=== PATIENT | male | born 2000 | race Caucasian/White ===

== ENCOUNTER 2025-09-10 16:52 | Emergency (ER) | payer BC ==
--- OUTSIDE RECORDS SUMMARY | 2025-09-10 16:56 | XMS REPORT | Continuity of Care Document ---
Author Name Unknown Address [address] [facility] [place] [address] [facility] Address [address] [facility] [address] [place] [address] Care Team Providers Care On Site Nurse Name Role Phone NO PHYSICIAN, . Primary Care Physician Unavailab gi Patel MD, Sendil K.H. Attending Clinician [phone] ASHLEY VARGAS Attending Clinician Unava ilable BEO736 Attending Clinician Unavailable TEJ MCFARLANE Attending Clinician Unavailable LAB90 Attending Clinician Unavailable LADAN RODRIGUEZ Attending Clinician Unavailable ASHU BONILLA Attending Clinician ALYSIA Cheema Attending Clinician ESTELA Tellez Attending Clinician Unavailsalvador silva Radiology Attending Clinician Unavailable Payers Payer Name Policy Type Policy Number Effective Date Expirati on Date Source BCBS 2 [id number] 2024 00:00:00 Problems Condition Name Condition Details Condition Category Status Onset Date Resolution Date Last Treatment Date Treating Clinician Comments Source Anxiety Anxiety Disease Active 2023-11 00:00: 00 Colleen Ahn - Externa l Allergies, Adverse Reactions, Alerts Allergy Name Allergy Type Status Severity Reaction(s) Onset Date Inactive Date Treating Clinician Comments Source NO KNOWN ALLERGIE S Drug Class Active [facility] Social History Social Habit Start Date Stop Date Quantity Comments Source Gender identity 2024-08-29 14:37:51 Identifies as male gender (finding) Colleen Ahn - External Sexual orientation K swetha Ahn - External Alcoholic beverage intake 2025-09-05 00:00:00 2025-09-05 00:00:00 Current drinker of alcohol (finding) Colleen Ahn - External History of Social function 2025-09-05 00:00:00 2025-09-05 00:00:00 Colleen Ahn - External Tobacco use and exposure 2024-08-19 00:00:00 2024-08-19 00:00:00 Smokeless tobacco non-user Colleen Ahn - External Alcohol Comment 2024-08-19 00:00:00 2024-08-19 00:00:00 occassionaly Colleen Ahn - External Sex 2024-08-09 10:55:16 2024-08-09 10:55:16 Male (finding) Colleen Ahn - External Tobacco Comment 2024-08-05 00:00:00 2024-08-05 00:00:00 [facility] Sex assigned at 2000 00:00:00 2000 00:00:00 M Colleen Ahn - External Smoking Status Start Date Stop Date Source Unknown if ever smoked [facility] Never smoked tobacco Colleen Ahn - External Medications Ordered Medication Name Filled Medication Name Start Date Stop Date Current Medication? Ordering Clinician Indication Dosage Frequency Signature (SIG) Comments Components Source Propranolol HCl 10 MG oral Tablet Propranolol HCl 10 MG oral Tablet 2024-11 00:00: 00 Yes [id number] 10mg Q.08317545 [id number] 3D Take 1 tablet (10 mg total) by mouth 3 times daily as needed. Colleen more Escitalopra m Oxalate (Lexapro) 10 MG oral Tablet Escitalopra m Oxalate (Lexapro) 10 MG oral Tablet 2023-11 00:00: 00 Yes [id number] 10mg QD Take 1 tablet (10 mg total) by mouth daily. Colleen more Escitalopra m Oxalate (Lexapro) 10 MG oral Tablet 2023-11 00:00: 00 10-21 00:00 :00 No [id number] 10mg QD Take 1 tablet (10 mg total) by mouth daily. Colleen more Propranolol HCl 10 MG oral Tablet Propranolol HCl 10 MG oral Tablet 2023-11 00:00: 00 09-05 00:00 :00 No [id number] 10mg Q.98081428 [id number] 3D Take 1 tablet (10 mg total) by mouth 3 times daily as needed. Colleen more Escitalopra m Oxalate (Lexapro) 10 MG oral Tablet 2023-11 00:00: 00 10-13 00:00 :00 No [id number] 10mg QD Take 1 tablet (10 mg total) by mouth daily. Colleen more Escitalopra m Oxalate (Lexapro) 5 MG oral Tablet 08-19 00:00: 00 09-16 00:00 :00 No [id number] 5mg QD Take 1 tablet (5 mg total) by mouth daily. Colleen more Vital Signs Vital Name Observation Time Observation Value Comments S prisca Diastolic blood pressure 2025-09-05 11:01:00 72 mm[Hg] Colleen camara - External Systolic blood pressure 2025-09-05 11:01:00 134 mm[Hg] Colleen camara - External Heart rate 2025-09-05 10:57:00 96 /min Kelse y Seybold - External Body temperature 2025-09-05 10:57:00 36 Gilda Colleen Seybold - External Respiratory rate 2025-09-05 10:57:00 15 /min Colleen Seybold - External Body height 2025-09-05 10:57:00 182.9 cm Tonja ey Seybold - External Body weight 2025-09-05 10:57:00 99.338 kg Tonja ey Seybold - External BMI 2025-09-05 10:57:00 29.70 kg/m2 Tonja ey Seybold - External Oxygen saturation in Arterial blood by Pulse oximetry 2025-09-05 10:57:00 99 /min Colleen Seybo ld - External Systolic blood pressure 2025-06-05 13:06:00 140 mm[Hg] Colleen Seybo ld - External Diastolic blood pressure 2025-06-05 13:06:00 76 mm[Hg] Colleen Seybo ld - External Heart rate 2025-06-05 13:06:00 78 /min Danose y Seybold - External Body temperature 2025-06-05 13:06:00 35.94 Gilda Colleen Seybold - External Respiratory rate 2025-06-05 13:06:00 15 /min Colleen Seybold - External Body height 2025-06-05 13:06:00 182.9 cm Tonja ey Seybold - External Body weight 2025-06-05 13:06:00 100.699 kg Tonja ey Seybold - External BMI 2025-06-05 13:06:00 30.11 kg/m2 Tonja ey Seybold - External Oxygen saturation in Arterial blood by Pulse oximetry 2025-06-05 13:06:00 98 /min Colleen Seybo ld - External Systolic blood pressure 2024-10-21 16:57:00 120 mm[Hg] Colleen Seybo ld - External Diastolic blood pressure 2024-10-21 16:57:00 78 mm[Hg] Colleen Seybo ld - External Heart rate 2024-10-21 16:57:00 78 /min Kelse y Seybold - External Body temperature 2024-10-21 16:57:00 35.94 Gilda Colleen Seybold - External Respiratory rate 2024-10-21 16:57:00 15 /min Colleen Seybold - External Body height 2024-10-21 16:57:00 182.9 cm Tonja ey Seybold - External Body weight 2024-10-21 16:57:00 95.709 kg Tonja ey Seybold - External BMI 2024-10-21 16:57:00 28.62 kg/m2 Tonja ey Seybold - External Systolic blood pressure 2024-09-16 19:35:00 130 mm[Hg] Colleen Seybo ld - External Diastolic blood pressure 2024-09-16 19:35:00 90 mm[Hg] Colleen Seybo ld - External Heart rate 2024-09-16 19:35:00 92 /min Kelse y Seybold - External Body temperature 2024-09-16 19:35:00 36.61 Gilda Colleen Seybold - External Respiratory rate 2024-09-16 19:35:00 18 /min Colleen Seybold - External Body height 2024-09-16 19:35:00 182.9 cm Tonja ey Seybold - External Body weight 2024-09-16 19:35:00 90.719 kg Tonja ey Seybold - External BMI 2024-09-16 19:35:00 27.12 kg/m2 Tonja ey Seybold - External Oxygen saturation in Arterial blood by Pulse oximetry 2024-09-16 19:35:00 99 /min Colleen Seybo ld - External Systolic blood pressure 2024-08-19 19:28:00 130 mm[Hg] Colleen Seybo ld - External Diastolic blood pressure 2024-08-19 19:28:00 72 mm[Hg] Colleen Seybo ld - External Heart rate 2024-08-19 19:28:00 101 /min Kelse y Seybold - External Body temperature 2024-08-19 19:28:00 36.94 Gilda Colleen Seybold - External Respiratory rate 2024-08-19 19:28:00 18 /min Colleen Seybold - External Body height 2024-08-19 19:28:00 182.9 cm Tonja ey Seybold - External Body weight 2024-08-19 19:28:00 96.616 kg Tonja Mojicaold - External BMI 2024-08-19 19:28:00 28.89 kg/m2 Tonja Ahn - External Oxygen saturation in Arterial blood by Pulse oximetry 2024-08-19 19:28:00 99 /min Colleen Varelaabdiaziz ld - External Systolic blood pressure 2024-08-05 14:20:00 121 mm[Hg] [facility] Diastolic blood pressure 2024-08-05 14:20:00 83 mm[Hg] [facility] Heart rate 2024-08-05 14:20:00 75 /min [facility] Respiratory rate 2024-08-05 14:20:00 16 /min [facility] Body height 2024-08-05 14:20:00 182.9 cm [facility] Body weight 2024-08-05 14:20:00 93.123 kg [facility] BMI 2024-08-05 14:20:00 27.84 kg/m2 [facility] Oxygen saturation in Arterial blood by Pulse oximetry 2024-08-05 14:20:00 100 /min [facility] Height 2024-08-01 10:12:00 182.427171 cm [facility] Weight 2024-08-01 10:12:00 92.899212 kg [facility] BMI (Body Mass Index) 2024-08-01 10:12:00 27.8 kg/m2 [facility] Procedures Procedure Date / Time Performed Performing Clinician Source CBC WITH DIFFERENTIAL 2025-09-06 00:00:00 Colleen Ahn - External COMP. METABOLIC PANEL (14) 2025-09-06 00:00:00 Colleen Ahn - External MAGNESIUM 2025-09-05 00:00:00 Colleen chahal - External TSH RFX ON ABNORMAL TO FREE T4 2025-09-05 00:00:00 Colleen Ahn - External TRANSTHORACIC ECHO (TTE) COMPLETE 2024-08-15 20:32:12 Alysia Patel [facility] XR WRIST 3+ VW RIGHT 2019-07-08 21:12:36 Radiology [facility] ECG- ADULT Colleen Ahn - External Plan of Care Planned Activity Planned Date Details Comments Source Encounters Start Date/Time End Date/Time Encounter Type Admission Type Attending [facility] Care Facility Care Department Encounter ID Source 2025-09-07 00:00:00 2025-09-07 14:55:16 Telephone Alysia Patel [facility] [id number] 350.1.13.10 4.2.7.2.686 [id number] [facility] 2025-09-05 11:00:00 2025-09-05 11:00:00 Outpatient ASHLEY VARGAS [id number] Colleen Galinajuan 2025-06-05 08:50:00 2025-06-05 08:50:00 Outpatient [id number] COLLEEN NELSON [id number] Colleen Anabelle 2025-06-05 08:00:00 2025-06-05 08:00:00 Outpatient TEJ MCFARLANE [id number] Colleen Anabelle 2024-10-21 11:45:00 2024-10-21 11:45:00 Outpatient LAB90 COLLEEN NELSON [id number] Colleen Anabelle 2024-10-21 11:00:00 2024-10-21 11:00:00 Outpatient TEJ MCFARLANE [id number] Colleen Anabelle 2024-10-13 19:30:00 2024-10-13 19:30:00 Outpatient LADAN RODRIGUEZ [id number] Colleen Anabelle 2024-09-30 11:00:00 2024-09-30 11:00:00 Outpatient ASHU BONILLA [id number] Colleen ybjuan 2024-09-19 13:30:00 2024-09-19 13:30:00 Outpatient ASHU BONILLA [id number] Colleen ybjuan 2024-09-16 15:00:00 2024-09-16 15:00:00 [facility]J [facility]ARLANE [id number] [facility]24-08-[facility] 14:30:00 2024-08-19 14:30:00 Outpatient ASHLEY VARGAS [id number] Colleen Ahn 2024-08-19 00:00:00 2024-08-19 09:24:[address] [facility] 1.2.840.114 350.1.13.10 4.2.7.2.686 [id number] [facility] 2024-08-19 00:00:00 2024-08-19 09:23:[address] [facility] 1.2.840.114 350.1.13.10 4.2.7.2.686 [id number] [facility] 2024-08-15 14:46:27 2024-08-15 23:59:00 Outpatient R ALYSIA PATEL [facility] [id number] [facility] 2024-08-15 14:46:27 2024-08-15 23:59:00 Hospital Encounter Alysia Patel [facility] 1.2.840.114 350.1.13.10 4.2.7.2.686 [id number] [facility] 2024-08-15 14:43:26 2024-08-15 14:45:00 Hospital Encounter Alysia Patel [facility] 1.2.840.114 350.1.13.10 4.2.7.2.686 [id number] [facility] 2024-08-05 00:00:00 2024-08-05 09:53:40 Letter (Out) Alysia Patel [facility] 1.2.840.114 350.1.13.10 4.2.7.2.686 [id number] [facility] 2024-08-05 09:00:00 2024-08-05 09:51:22 Outpatient R ALYSIA PATEL [facility] [id number] [facility] 2024-08-05 09:00:00 2024-08-05 09:51:22 [facility] 1.2.840.114 350.1.13.10 4.2.7.2.686 [id number] [facility] 2024-08-01 10:14:00 2024-08-01 11:15:00 Emergency ER ESTELA RICHARD [facility] [id number] [facility] 2024-08-01 10:14:00 2024-08-01 11:15:00 Departed Emergency Room [facility] [id number] [facility] 2019-07-08 15:57:49 2019-07-08 23:59:00 Hospital Encounter Radiology [facility] 1.2.840.114 350.1.13.10 4.2.7.2.686 [id number] [facility] Results Test Description Test Time Test Comments Results Result Co mments Source [facility] [id number] 11:10:00 * Test Item Value Reference Range Interpretation Comme [facility] Activated Partial Thrombopla st Time (test code = 04586-4) 29.2 [facility] CtrSerum or plasma thyroid stimulating hormone (TSH) lmorlqeafsj4470-27-59 11:05:00* Test Item Value Reference Range Interpretation Comme [facility] Thyroid Stimulating Hormone (TSH) (test code = 3016-3) 2.07 [facility] CtrSerum or plasma creatine kinase MB (CK-MB) measurement by immunoassay (mass/volume)2024-08-01 11:05:00* Test Item Value Reference Range Interpretation Comme nts Creatine Kinase MB (test cod e = 30210-9) 1.7 [facility] CtrSerum or plasma cardiac troponin I panel by high sensitivity [id number] 11:05:00* Test Item Value Reference Range Interpretation Comme nts Troponin T High Sensitivity (test code = 11220-2) < 6.0 [facility] CtrNT-proBNP oyzeguhftik7319-86-44 10:57:00* Test Item Value Reference Range Interpretation Comme nts TV-Qfq-V-Type Natriuretic Pe ptide (test code = 224372951) < 36 [facility] CtrProthrombin [id number] 10:56:00* Test Item Value Reference Range Interpretation Comme nts Prothrombin Time (test code = 601905001) [facility]8 [facility] isoyconswin1103-75-09 10:56:00* Test Item Value Reference Range Interpretation Comme nts Prothromb Time International Ratio (test code = 32823-8) 0.95 [facility] CtrSerum or plasma glucose measurement (mass/volume) 2024-08-01 10:53:00* Test Item Value Reference Range Interpretation Comme nts Random Glucose (test code = 2345-7) 95 [facility] CtrSerum or plasma urea nitrogen measurement (mass/volume)2024-08-01 10:53:00* Test Item Value Reference Range Interpretation Comme nts Blood Urea Nitrogen (test co de = 3094-0) 16 [facility] [id number] 10:53:00* Test Item Value Reference Range Interpretation Comme nts Aspartate Amino Transf (AST/ SGOT) (test code = XAE6474) 22 [facility] CtrBilirubin tvubc1288-54-60 10:53:00* Test Item Value Reference Range Interpretation Comme nts Total Bilirubin (test code = YYM3418) 0.3 [facility] CtrEstimated glomerular filtration rate (GFR) xxjqemvhlxjbq7752-53-06 10:53:00* Test Item Value Reference Range Interpretation Comme [facility] Glomerular Filtration Rate C alc (test code = 033592190) > 60.00 [facility] CtrBUN/creatinine azsvw7783-30-52 10:53:00* Test Item Value Reference Range Interpretation Comme nts BUN/Creatinine Ratio (test c ode = 16352959) 17.4 [facility] KpqRQ99472-76-04 10:53:00* Test Item Value Reference Range Interpretation Comme nts Carbon Dioxide Level (test c ode = 27873168) 25 [facility] CtrAnion gap gnyazajeelq1078-84-22 10:53:00* Test Item Value Reference Range Interpretation Comme nts Anion Gap (test code = 40519703) 16.0 [facility] CtrCalcium tfemp1584-33-86 10:53:00* Test Item Value Reference Range Interpretation Comme nts Calcium Level (test code = 35216289) 9.7 [facility] EpkCwzmcrpch1453-65-13 10:53:00* Test Item Value Reference Range Interpretation Comme nts Magnesium Level (test code = 80141590) 1.9 [facility] CtrGlobulin ydo8971-23-44 10:53:00* Test Item Value Reference Range Interpretation Comme nts Globulin (test code = 025700661) 2.9 [facility] CtrALT (SGPT) ser/pcol6424-40-69 10:53:00* Test Item Value Reference Range Interpretation Comme nts Alanine Aminotransferase (AL T/SGPT) (test code = 1742-6) 40 [facility] CtrALP ser/aodf2159-01-51 10:53:00* Test Item Value Reference Range Interpretation Comme nts Total Alkaline Phosphatase ( test code = 6768-6) 62 [facility] CtrCreatine kinase wricbugmrzn2695-25-83 10:53:00* Test Item Value Reference Range Interpretation Comme nts Creatine Kinase (test code = 257444418) 120 [facility] corpus[facility] hemoglobin concentration (MCHC) pejgtxfgnhryu5017-34-01 10:38:00* Test Item Value Reference Range Interpretation Comme nts Mean Corpuscular Hemoglobin Concent (test code = 83898084) 32.8 [facility] CtrRBC distribution width coefficient of variation 2024-08-01 10:38:00* Test Item Value Reference Range Interpretation Comme nts Red Cell Distribution Width (test code = 73591512) 12.2 [facility] CtrPlatelet febkw6055-53-74 10:38:00* Test Item Value Reference Range Interpretation Comme nts Platelet Count (test code = 73514393) 246 [facility] CtrMean platelet xpwxwa1903-62-05 10:38:00* Test Item Value Reference Range Interpretation Comme nts Mean Platelet Volume (test c ode = 16877019) 9.5 [facility] CtrNeutrophils seg % aut2340-01-60 10:38:00* Test Item Value Reference Range Interpretation Comme nts Neutrophils (%) (Auto) (test code = 96831-1) 69.0 [facility] CtrAbsolute immature granulocyte rnbej1004-28-30 10:38:00* Test Item Value Reference Range Interpretation Comme [facility] Absolute Immature Granulocyt e (auto (test code = 98456-7) 0.02 [facility] neutrophils count (number/volume) 2024-08-01 10:38:00* Test Item Value Reference Range Interpretation Comme [facility] Neutrophils # (Auto) (test c ode = 60062-0) 5.27 [facility] CtrAbsolute lymphocyte kuqax1846-45-92 10:38:00* Test Item Value Reference Range Interpretation Comme nts Lymphocytes # (Auto) (test c ode = 84396-5) 1.53 [facility] CtrAbsolute basophil xnyez1835-45-13 10:38:00* Test Item Value Reference Range Interpretation Comme [facility] Basophils # (Auto) (test cod e = 60670702) 0.05 [facility] CtrAbsolute NRBC duqej6015-79-37 10:38:00* Test Item Value Reference Range Interpretation Comme [facility] Nucleated Red Blood Cells # (test code = 305924720) 0 [facility] CtrAbsolute eosinophil stebs0385-78-30 10:38:00* Test Item Value Reference Range Interpretation Comme [facility] Eosinophils # (Auto) (test c ode = ASN9317) 0.07 [facility] CtrRBC umwjh3877-29-53 10:38:00* Test Item Value Reference Range Interpretation Comme [facility] Red Blood Count (test code = 26081155) 5.47 [facility] WgxIycusyskyz7173-48-68 10:38:00* Test Item Value Reference Range Interpretation Comme [facility] Hematocrit (test code = 51783991) 45.8 [facility] CtrMCV (mean corpuscular volume) determination 2024-08-01 10:38:00* Test Item Value Reference Range Interpretation Comme [facility] Mean Corpuscular Volume (brennen t code = 12028-2) 83.7 [facility] CtrMean corpuscular hemoglobin (MCH) determination 2024-08-01 10:38:00* Test Item Value Reference Range Interpretation Comme [facility] Mean Corpuscular Hemoglobin (test code = 34505554) 27.4 [facility] CtrXR WRIST 3+ VW [id number] 21:49:28* * * * * * * * ORIGINAL REPORT * * * * * * * *EXAMINATION. Right wrist, multiple views. HISTORY. Right wrist pain. No bony, joint, or soft tissue abnormality is seen. [facility], Radiant Results Inft User- 07/08/2019 4:51 PM CDT* * * * * * * * ORIGINAL REPORT * * * * * * * *EXAMINATION. Right wrist, multiple views. HISTORY. Right wrist pain.No bony, joint, or soft tissue abnormality is seen.[facility] Notes Date/Time Note Provider Source 2025-09-07 14:54:51 Fax received with request for medical records. Sending via ground fax to [facility]. Kiki Jimenez MA [facility] - Health Referral ID Status Reason Start Date Expiration Date Visits Requested Visits Authorized [id number] Authorized Service Not Available at Clinic 12/04/2025 1 1 * Consultation (Routine) - Authorized Specialty Diagnoses / Procedures Referred By Savana esparza Referred To Contact Neurology Diagnoses Dizziness Procedures OFFICE/OUTPATIENT [facility] 60 MINUTES Ashley Vargas MD [address] [place] [address] Phone: tel: fax: Haider Hernandez MD [address] [place] [address] Phone: tel: fax: Referral ID Status Reason Start Date Expiration Date Visits Requested Visits Authorized [id number] Authorized Service Not Available at Clinic 12/04/2025 1 1 Doni Lvnpmf2468-06-74 12:38:33* [facility] Acpmjl4499-63-76 12:38:33* BP Answer Date of Assessment Author 134/72 09/05/2025 11:01 AM CDT Brittny Petty MA * Temp Answer Date of Assessment Author 96.8 09/05/2025 10:57 AM CDT Brittny Petty MA * Temp src Answer Date of Assessment Author Tympanic 09/05/2025 10:57 AM CDT Brittny Petty MA * Pulse Answer Date of Assessment Author 96 09/05/2025 10:57 AM CDT Brittny Petty MA * Resp Answer Date of Assessment Author 15 09/05/2025 10:57 AM CDT Brittny Petty MA * SpO2 Answer Date of Assessment Author 99 09/05/2025 10:57 AM CDT Brittny Petty MA * Height Answer Date of Assessment Author 72 09/05/2025 10:57 AM CDT Brittny Petty MA * Weight Answer Date of Assessment Author 3504 09/05/2025 10:57 AM CDT Brittny Petty MA * Pain Score Answer Date of Assessment Author 0/10 09/05/2025 10:57 AM CDT Brittny Petty MA * Position Answer Date of Assessment Author SITTING 09/05/2025 11:01 AM CDT Brittny Petty MA * BSA (Calculated - sq m) Answer Date of Assessment Author 2.24 09/05/2025 10:57 AM CDT Brittny Petty MA * BMI (Calculated) Answer Date of Assessment Author 29.7 09/05/2025 10:57 AM CDT Brittny Petty MA * GENERAL Question Answer Date of Assessment Author Preferred learning method? Written Material 09/05/2025 11:00 AM CDT Leslie Petty MA Preferred language? Japanese 09/05/2025 11:00 AM C Leslie Carreno MA Needs Sap Solution Manager Consultant? No 09/05/2025 11:00 AM CD T Leslie Petty MA Ability to read? Yes 09/05/2025 11:00 AM CDT Leslie Petty MA * BMI (Calculated) Answer Date of Assessment Author 29.7 09/05/2025 10:57 AM CDT Brittny Petty MA * BSA (Calculated - sq m) Answer Date of Assessment Author 2.25 09/05/2025 10:57 AM CDT Brittny Petty MA [place]2025-10-14 12:38:33* Ashley Vargas MD - 09/05/2025 12:21 PM CDT HPI Navi Bob is a 24 year old male is here for Blood Pressure (He's noticed that his blood pressure has been elevated. ) He believes that he is having random blood pressure spikes He states that he has been having random episodes that occur at rest or with activity where he feels warm, dizzy,slightly nauseated, has difficulty speaking and drowsiness afterward He has not checked his blood pressure when these instances occur He states that his heart rate seems to increase and at times he has had tunnel vision He states when these episodes occur he feels better after he takes 10 mg of propanolol He has been evaluated in the past by nuclear equipment operator Dr. Patel and underwent a stress test and echocardiogram which were both normal He did not have a holter monitor done After this evaluation he was seen in clinic and started on lexapro because his sx were felt to be secondary to anxiety He states that he had no benefot with lexapro and he yan weight so he stopped it after 3 months Allergies[1] Past Medical History[2] Review of Systems Review of Systems Constitutional: Positive for fatigue. Negative for activity change, appetite change, chills, fever and unexpected weight change. HENT: Negative for congestion, ear pain, rhinorrhea, sinus pain and sore throat. Eyes: Negative for visual disturbance. Respiratory: Negative for cough, chest tightness, shortness of breath and wheezing. Cardiovascular: Positive for palpitations. Negative for chest pain and leg swelling. Gastrointestinal: Positive for nausea. Negative for abdominal distention, abdominal pain and vomiting. Genitourinary: Negative for dysuria. Skin: Negative for rash. Neurological: Positive for dizziness. Negative for headaches. Physical Exam BP 134/72 (Side: Left Arm, Position: SITTING, Cuff Size: Large Adult) | Pulse96 | Temp 96.8 ?F (36 ?C) (Tympanic) | Resp 15 | Ht 6' (1.829 m) | Wt 219 lb (99.3 kg) | SpO2 99% | BMI 29.70 kg/m? Physical ExamVitals and nursing note reviewed. Constitutional: General: He is not in acute distress. Appearance: Normal appearance. He is well-developed. He is not ill-appearing or toxic-appearing. HENT: Head: Normocephalic. Eyes: Extraocular Movements: Extraocular movements intact. Conjunctiva/sclera: Conjunctivae normal. Neck: Comments: No thyromegaly Cardiovascular: Rate and Rhythm: Normal rate and regular rhythm. Heart sounds: Normal heart sounds. No murmur heard. No friction rub. Pulmonary: Effort: Pulmonary effort is normal. No respiratory distress. Breath sounds: Normal breath sounds. No stridor. No wheezing, rhonchi or rales. Musculoskeletal: Cervical back: Normal range of motion and neck supple. Right lower leg: No edema. Left lower leg: No edema. Lymphadenopathy: Cervical: No cervical adenopathy. Skin: General: Skin is warm and dry. Neurological: General: No focal deficit present. Mental Status: He is alert and oriented to person, place, and time. Comments: Tremor in hands bilaterally Psychiatric: Mood and Affect: Mood normal. Behavior: Behavior normal. Assessment and Plan Navi was seen today for blood pressure. Diagnoses and all orders for this visit: Palpitations- ECG- ADULT - REFERRAL TO CARDIOLOGY- EXTERNAL Dr Warren for further evaluation with a holter monitor - CBC WITH DIFFERENTIAL; Future - COMP. METABOLIC PANEL (14); Future - MAGNESIUM; Future Will evaluate electroytes Dizziness - ECG- ADULT - REFERRAL TO NEUROLOGY- EXTERNAL Dr Hernandez to rule out a seizure disorder - REFERRAL TO CARDIOLOGY- EXTERNAL Dr. Warren - CBC WITH DIFFERENTIAL; Future - COMP. METABOLIC PANEL (14); Future - MAGNESIUM; Future Tremor- TSH RFX ON ABNORMAL TO FREE T4; Future Anxiety- Propranolol HCl 10 MG oral Tablet; Take 1 tablet (10 mg total) by mouth 3 times daily as needed. He is to follow up in clinic in 4 weeks Health Maintenance Health Maintenance DueTopic Date Due Influenza Vaccines (1) [facility] No Known Allergies [2] No past medical history on file. [place]2025-10-14 12:38:33Scheduled Orders Scheduled Referrals Name Type Priority Associated Diagnoses Orde r Schedule REFERRAL TO NEUROLOGY- EXTERNAL Referral Routine Dizziness Ordered: 025 REFERRAL TO CARDIOLOGY- EXTERNAL Referral Routine Palpitations Dizziness Ordered: 09/05/2025 Health Maintenance Due Date Last Done Comments Influenza Vaccines (#1) 2025 HPV Vaccines (1 - Male 3-dos e series) 10/21/2025 Postponed from 09/08 (Patient Refused) Meningococcal ACWY Vaccines 10/21/2025 Postponed from 2019 (Patient Refused) Tdap Vaccines 10/21/2025 Postponed from 2019 (Patient Refused) Physical Exam 10/21/2026 10/21/2024, 10/21/2024, 10/21/2024 Lipid Panel 10/21/2029 10/21/2024 RSV Vaccines (1 - 1-dose 75+ series) 2075 Pneumococcal Vaccine: Pediatrics (0 to 5 Years) and At-Risk Patients (6 to 64 Years) Aged Out No longer eligible b ased on patient's age to complete this topic [id number] 12:38:33 Diagnosis Palpitations - Primary Dizziness Dizziness and giddiness Tremor Abnormal involuntary movements Anxiety Anxiety state, unspecified [place]2025-10-14 12:38:33 [place] [id number] 11:53:06 EKG performed and placed on Dr. Vargas's desk. Emma Irizarry [place]25-10-14 10:59:58 Chief Complaint Patient presents with Blood Pressure He's noticed that his blood pressure has been elevated. Leslie Petty MA [place]2025-07-14 08:09:42 Chief Complaint Patient presents with Weight Problem He has had increased weight gain, hot flashes and irritability. Worried about hormones or thyroid Leslie Petty MA Leslie Petty [facility] [id number] 11:00:03 Chief Complaint Patient presents with Follow-up Follow up on anxiety and depression. 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 Spoke to patient, confirmed he reviewed all test results on my chart and had no questions or concerns at this time. Alysia Patel MD P Cardiology Nurse Echo with in acceptable limits. Preserved LVEF. No significant valve diease noted. Normal diastolic function. Excellent functional capacity in the stress test 12.9 METS. Negative stress test. No arrhythmias noted. Follow-up with [facility] cardiology as needed. Celine Kelly [place] [id number] 09:22:28 Images from the original note were not included. Spoke to patient, confirmed he reviewed results on my chart and had no questions or concerns at this time. Alysia Patel MD P Cardiology Nurse Echo with in acceptable limits. Preserved LVEF. No significant valve diease noted. Normal diastolic function. Excellent functional capacity in the stress test 12.9 METS. Negative stress test. No arrhythmias noted. Follow-up with [facility] cardiology as needed. [id number] 11:44:20 Patient Care Team <thead> Team Status: Active Member Role Status Dates . NO PHYSICIAN primary care physician Active ESTELA RICHARD MD Emergency Provider Active . NO PHYSICIAN Primary Care Physician Active RHIANNA BOB Next of Kin Active DELMI BOB Emergency Contact Active [facility] [id number] 11:44:20 [facility]2024-09-09 11:44:20 Recommend avoiding caffeine, alcohol or stimulant intake. Follow up with your regular doctor for recheck in the next 2 weeks. Return to ER for any concerns. Future Tests Future scheduled test information is unavailable Pending Tests Pending diagnostic test information is unavailable Future Visits Future appointment information is unavailable Referrals to Other Providers <thead> Reason for Referral Referral Start Date Provider Provider Contact Information Provider Address NO PHYSICIAN Future Procedures <thead> Procedure Name Ordered Date Scheduled Date EKG,INITIAL August 01, 2024 10:27am Sept ember 2023 10:26am Cardiac, BP, Pulse Ox Monitor August 01 10:27am August 01, 2024 10:26am Insert Peripheral IV Access August 01, 2024 10:27am August 01, 2024 10:26am Remove Clothing/Place in Gown August 01 10:27am August 01, 2024 10:26am 2L NC Oxygen Therapy August 01, 2024 10:27am August 01, 2024 10:26am VS - Adult August 01, 2024 10:27am Sept ember 2023 10:26am Electrocardiogram, Complete August 01, 2024 10:27am August 01, 2024 10:26am Future Medications Future medication information is unavailable Patient Instructions <tbody> Palpitations, [id number]-Drfy [facility]"
[2025-09-10 18:00] LABS: Absolute Lymphocytes (CBC) 1.1 K/uL (0.7-4.9); Hematocrit 43.8 % (39.6-49.0); Hemoglobin 15.1 g/dL (13.6-17.9); MCH 27.8 pg (27.0-35.0); MCHC 34.6 g/dL (32.0-36.0); MCV 80.6 fL (80-100); MPV 8.0 fL (7.6-11.3); Nucleated RBC Absolute Count 0.0 (0-0); Nucleated Red Blood Cells % 0.0 % (0-0); RBC Red Blood Cell Count 5.44 M/uL (4.33-5.43); White Blood Count 8.60 thou/uL (4.3-10.9)
[2025-09-10] MEDS ORDERED: ASPIRIN 81 MG CHEWABLE TABLET ONE (18:01)
[2025-09-10 18:03] LABS: PT Prothrombin Time 13.5 SECONDS (10-13.0); Protime INR 1.2
[2025-09-10 18:25] LABS: ALT/SGPT 53 U/L (16-61); AST/SGOT 19 U/L (15-37); Albumin 4.2 g/dL (3.4-5.0); Albumin/Globulin Ratio 1.3 (1.1-1.8); Alkaline Phosphatase 48 U/L (45-117); Anion Gap 9.8 mEq/L (5.0-15.0); BUN Blood Urea Nitrogen 20 mg/dL (7-18); Globulin 3.3 g/dL (2.3-3.5); Glucose Level 114 mg/dL (74-106); Magnesium 2.3 mg/dL (1.6-2.4); NT PRO-BNP 8 pg/mL (<125); Potassium 3.8 mEq/L (3.5-5.1); Thyroid Stimulating Hormone 1.100 uIU/mL (0.358-3.740)
[2025-09-10 18:26] LABS: Bilirubin Indirect, Calculated 0.1 mg/dL (0.2-0.8); Troponin High Sensitivity < 3.0 pg/mL (<58.9)
--- NOTE | 2025-09-10 18:38 | RAD REPORT ---
EXAMINATION: ONE VIEW CHEST XR CLINICAL INDICATION: Male, 25 years old.,CHEST PAIN TECHNIQUE: Frontal chest projection is submitted. Examination is limited by patient positioning and t echnique. COMPARISON: No prior exam. FINDINGS: The lungs are well inflated and clear. No pneumothorax or sizable effusion. The heart is normal in s ize. Mediastinal contours are unremarkable. IMPRESSION: No acute intrathoracic abnormalities.
[2025-09-10] MEDS ORDERED: NA CHLORIDE 0.9% 1,000 ML ONE (18:45)
--- NOTE | 2025-09-10 19:42 | EDPHYS ---
Physician Documentation [facility] Name: Claude Mendez Age: 25 yrs Sex: Male : 2000 Arrival Date: 09/10/2025 Time: 16:52 Bed 11 Private MD: ED Physician Howie Miranda HPI: 09/10 20:14 This 25 yrs old Male presents to ER via Ambulatory with complaints of Chest Pressure, sb4 High Blood Pressure. 20:14 Patient reports chest pressure, dizzy, and elevated blood pressure that began this sb4 morning. He states that he did drink a sweet tea this morning which is abnormal for him as he did cut out caffeine recently. States that he has been dealing with intermittent bouts of elevated blood pressure readings. He was told he had anxiety and maybe elevated blood pressure, was put on propranolol 3 times daily as needed. He states that when he checked his blood pressure this afternoon, it was 160/90. He states it was the chest tightness that concerned him so he came to the ED for further eval. Reports a slight headache, denies any blurry vision. States that he has an appointment with cardiology soon. Historical: - Allergies: 17:21 No Known Allergies; iw - Home Meds: 17:21 propranolol 10 mg Oral tablet 3 times per day [Active]; iw - PMHx: 17:21 Anxiety; iw - Immunization history:: Adult Immunizations up to date, . - Infectious Disease History:: Denies. - Social history:: Smoking status: Reported history of juuling and/or vaping. ROS: 20:14 Constitutional: Negative for fever, chills, and weight loss, sb4 20:14 Cardiovascular: Positive for chest tightness, 20:14 Neuro: Positive for dizziness, 20:14 All other systems are negative, Exam: 20:45 Constitutional: This is a well developed, well nourished patient who is awake, alert, sb4 and in no acute distress. Head/Face: Normocephalic, atraumatic. Eyes: Extra-ocular motions intact. Periorbital areas with no swelling, redness, or edema. ENT: Mucous membranes moist. Cardiovascular: Regular rate and rhythm with a normal S1 and S2. Respiratory: No increased work of breathing, no retractions or nasal flaring. Abdomen/GI: Soft, non-tender, no distension. Skin: Warm, dry with normal turgor. Normal color with no rashes, no lesions, and no evidence of cellulitis. Vital Signs: 17:23 BP 142 / 81; Pulse 74; Resp 16; Pulse Ox 100% on R/A; Weight 95.25 kg; Height 6 ft. 0 iw in. ; 18:57 BP 115 / 79; Pulse 80; Resp 18; Pulse Ox 99% ; Pain 0/10; rg5 20:01 BP 120 / 83; Pulse 61; Resp 18; Pulse Ox 100% ; Pain 0/10; rg5 17:23 Body Mass Index 28.48 (95.25 kg, 182.88 cm) iw 18:57 Pain Scale: Adult rg5 20:01 Pain Scale: Adult rg5 MDM: 17:12 Medical Screening Exam initiated sb4 20:45 Differential diagnosis: anxiety, thyroid abnormality, dehydration, electrolyte sb4 abnormality, abnormal ekg, hypertension. Data reviewed: vital signs, nurses notes, lab test result(s), EKG, radiologic studies, and as a result, I will discharge patient. Scoring Tools HEART Score: History: ECG: Age: Risk Factors: No Risk Factors Known (0), Troponin: Total Score = 0. Counseling: I had a detailed discussion with the patient and/or guardian regarding the historical points, exam findings, and any diagnostic results supporting the discharge/admit diagnosis, the presence of at least one elevated blood pressure reading (>120/80) during this emergency department visit, lab results, radiology results, the need for outpatient follow up, for definitive care, to return to the emergency department if symptoms worsen or persist or if there are any questions or concerns that arise at home. Special discussion: Based on the patient's history, exam, and Dx evaluation, there is no indication for emergent intervention or inpatient Tx. It is understood by the patient/guardian that if the Sx's persist or worsen they need to return immediately for re-evaluation. 09/10 17: Order name: Basic Metabolic Panel; Complete Time: 18:35 sb4 09/10 17:27 Order name: CBC with Diff; Complete Time: 18:18 sb4 09/10 17:27 Order name: LFT's; Complete Time: 18:35 sb4 09/10 17:27 Order name: Magnesium; Complete Time: 18:35 sb4 09/10 17:27 Order name: NT PRO-BNP; Complete Time: 18:35 sb4 09/10 17:27 Order name: PT-INR; Complete Time: 18:04 sb4 09/10 17:27 Order name: Troponin HS; Complete Time: 18:35 sb4 09/10 17:27 Order name: TSH; Complete Time: 18:35 sb4 09/10 17:27 Order name: XRAY Chest (1 view); Complete Time: 18:39 sb4 09/10 17:27 Order name: Cardiac monitoring; Complete Time: 17:55 sb4 09/10 17:27 Order name: EKG - Nurse/Tech; Complete Time: 17:51 sb4 09/10 17:27 Order name: IV Saline Lock; Complete Time: 17:51 sb4 09/10 17:27 Order name: Labs collected and sent; Complete Time: 17:51 sb4 09/10 17:27 Order name: O2 Per Protocol; Complete Time: 17:55 sb4 09/10 17:27 Order name: O2 Sat Monitoring; Complete Time: 17:55 sb4 EC:53 Rate is 79 beats/min. Rhythm is regular, Sinus Rhythm. MS interval is normal at 154 sb4 msec. QRS interval is normal at 87 msec. QT interval is normal at 331 msec. No Q waves. T waves are Normal. No ST changes noted. Clinical impression: Normal ECG. Interpreted by me. Reviewed by me. Administered Medications: 18:14 Drug: Aspirin PO Chewable Tablet 324 mg PO once; 81 mg tablets x 4 Route: PO; rg5 18:54 Follow up: Response: No adverse reaction rg5 18:57 Drug: NS 0.9% IV 1000 ml IV at 1000 ml once; to be given as a bolus over 60 minutes rg5 Route: IV; Rate: 1000 ml; Site: left antecubital; 19:55 Follow up: IV Status: Completed infusion; IV Intake: 1000ml rg5 Disposition Summary: 09/10/25 19:41 Discharge Ordered Notes: Location: Home sb4 Problem: new sb4 Symptoms: have improved sb4 Condition: Stable sb4 Diagnosis - Elevated blood-pressure reading, without diagnosis of hypertension sb4 Followup: sb4 - With: Emergency Department - When: As needed - Reason: Trouble breathing, Worsening of condition Discharge Instructions: - Discharge Summary Sheet sb4 - How to Take Your Blood Pressure, [id number] sb4 - Form - Blood Pressure Record Sheet sb4 Forms: - Patient Portal Instructions sb4 - Leadership Thank You Letter sb4 Signatures: Dispatcher [employer] Danielle Qureshi, RN RN iw Anamaria Kaplan, PAMary PAMary sb4 Gerber Batista, CORTNEY RN rg5 Corrections: (The following items were deleted from the chart) 17:22 17:21 PMHx: None; iw 17:28 17:27 BASIC METABOLIC PANEL+C.LAB.BRZ ordered. EDMS EDMS 17: 17:27 CBC+H.LAB.BRZ ordered. EDMS EDMS 17: 17:27 HEPATIC FUNCTION+C.LAB.BRZ ordered. EDMS EDMS 17: 17:27 MAGNESIUM+C.LAB.BRZ ordered. EDMS EDMS 17: 17:27 PROBNP+C.LAB.BRZ ordered. EDMS EDMS 17: 17:27 PROTIME (+INR)+COAG.LAB.BRZ ordered. EDMS EDMS 17: 17:27 Troponin High Sensitivity+C.LAB.BRZ ordered. EDMS EDMS 17:28 17:27 THYROID STIMULAT HORMONE+C.LAB.BRZ ordered. EDMS EDMS 17:28 17:28 Chest Single View+RAD.RAD.BRZ ordered. EDMS EDMS
--- NOTE | 2025-09-10 19:42 | ER ---
Nurse's Notes [facility] Name: Claude Mendez Age: 25 yrs Sex: Male : 2000 Arrival Date: 09/10/2025 Time: 16:52 Bed 11 Private MD: Diagnosis: Elevated blood-pressure reading, without diagnosis of hypertension Presentation: 09/10 17:19 Chief complaint: Patient states: has been having high BP and high HR intermittent for iw past year, today it started around 330 pm , also had some chest tightness, nausea, dizziness, they told me it might be anxiety, has been prescribed propranolol 10 mg TID. Coronavirus screen: At this time, the client does not indicate any symptoms associated with coronavirus-19. Ebola Screen: No symptoms or risks identified at this time. Initial Sepsis Screen: Does the patient meet any 2 criteria? No. Patient's initial sepsis screen is negative. Does the patient have a suspected source of infection? No. Patient's initial sepsis screen is negative. Risk Assessment: Do you want to hurt yourself or someone else? Patient reports no desire to harm self or others. Onset of symptoms was September 10, 2025. 17:19 Acuity: CROW 3 iw 17:19 Method Of Arrival: Ambulatory iw Historical: - Allergies: 17:21 No Known Allergies; iw - Home Meds: 17:21 propranolol 10 mg Oral tablet 3 times per day [Active]; iw - PMHx: 17:21 Anxiety; iw - Immunization history:: Adult Immunizations up to date, . - Infectious Disease History:: Denies. - Social history:: Smoking status: Reported history of juuling and/or vaping. Screenin:54 [facility] ED Fall Risk Assessment (Adult) History of falling in the last 3 months, iw including since admission No falls in past 3 months (0 pts) Confusion or Disorientation No (0 pts) Intoxicated or Sedated No (0 pts) Impaired Gait No (0 pts) Mobility Assist Device Used No (0 pt) Altered Elimination No (0 pt) Score/Fall Risk Level 0 - 2 = Low Risk Oriented to surroundings, Maintained a safe environment. Abuse screen: Denies threats or abuse. Denies injuries from another. Nutritional screening: No deficits noted. Tuberculosis screening: No symptoms or risk factors identified. Assessment: 17:53 General: Appears in no apparent distress. Behavior is calm, cooperative. Pain: iw Complains of pain in chest. Pain: Pain does not radiate. Pain began 1 hour ago. Is intermittent. Neuro: Level of Consciousness is awake, alert, obeys commands, Oriented to person, place, time, situation. Cardiovascular: Capillary refill < 3 seconds in bilateral fingers Patient's skin is warm and dry. Respiratory: Respiratory effort is even, unlabored, Respiratory pattern is regular, symmetrical. GI: Abdomen is non-distended. 18:58 Reassessment: Patient and/or family updated on plan of care and expected duration. Pain rg5 level reassessed. Patient is alert, oriented x 3, equal unlabored respirations, skin warm/dry/pink. Patient states feeling better. Patient states symptoms have improved. 19:50 Reassessment: Patient and/or family updated on plan of care and expected duration. Pain rg5 level reassessed. Patient is alert, oriented x 3, equal unlabored respirations, skin warm/dry/pink. Patient states feeling better. Patient states symptoms have improved. Vital Signs: 17:23 BP 142 / 81; Pulse 74; Resp 16; Pulse Ox 100% on R/A; Weight 95.25 kg; Height 6 ft. 0 iw in. ; 18:57 BP 115 / 79; Pulse 80; Resp 18; Pulse Ox 99% ; Pain 0/10; rg5 20:01 BP 120 / 83; Pulse 61; Resp 18; Pulse Ox 100% ; Pain 0/10; rg5 17:23 Body Mass Index 28.48 (95.25 kg, 182.88 cm) iw 18:57 Pain Scale: Adult rg5 20:01 Pain Scale: Adult rg5 ED Course: 16:55 Patient arrived in ED. im 17:01 Anamaria Kaplan PA-C is PHCP. sb4 17:01 Howie Miranda MD is Attending Physician. sb4 17:21 Triage completed. iw 17:51 Initial lab(s) drawn, by superintendent geophysical laboratory, sent to lab. Inserted saline lock: 20 gauge in left ts3 antecubital area, using aseptic technique. Blood collected. Flushed with 10 mL NS. 17:51 EKG done, by computer operations technician. reviewed by Anamaria Kaplan PA-C. ts3 17:53 Danielle Anderson, RN is Primary Nurse. iw 17:53 Arm band placed on. iw 18:22 XRAY Chest (1 view) In Process Unspecified. EDMS 20:03 IV discontinued, bleeding controlled, No redness/swelling at site. Pressure dressing rg5 applied. 20:03 Assist provider with bone marrow aspiration. rg5 Administered Medications: 18:14 Drug: Aspirin PO Chewable Tablet 324 mg PO once; 81 mg tablets x 4 Route: PO; rg5 18:54 Follow up: Response: No adverse reaction rg5 18:57 Drug: NS 0.9% IV 1000 ml IV at 1000 ml once; to be given as a bolus over 60 minutes rg5 Route: IV; Rate: 1000 ml; Site: left antecubital; 19:55 Follow up: IV Status: Completed infusion; IV Intake: 1000ml rg5 Medication: 17:54 VIS not applicable for this client. iw Intake: 19:55 IV: 1000ml; Total: 1000ml. rg5 Outcome: 19:41 Discharge ordered by . sb4 20:03 Discharged to home ambulatory, rg5 20:03 Condition: stable 20:03 Discharge instructions given to patient, 20:03 Patient left the ED. rg5 Signatures: Dispatcher [employer] EDMS Danielle Anderson, RN RN iw Anamaria Kaplan, PA-C PA-C sb4 Liv Naranjo Rommel RN RN rg5 [place] ts3 Corrections: (The following items were deleted from the chart) 17: 17:21 PMHx: None; iw iw
[2025-09-11 01:38] VITALS: BP 120/83; O2SAT 100
== END 2025-09-10 20:03 | disposition home or self-care (01) ==
LOC: ER 16:52
DX: R03.0 Elevated blood-pressure reading, without diagnosis of hypertension (principal); F41.9 Anxiety disorder, unspecified
CPT/HCPCS: 93005; 85025; 80048; 36415; 83735; 85610; 80076; 84443; 84484; 83880; 71045; 96360; 99285; J7030